=== PATIENT | female | born 1985 | race African-American/Black ===

== ENCOUNTER 2020-04-06 07:14 | Outpatient (CLI) | payer OTHER ==
[~2020-04-06] VITALS: Ht 170.3 cm; Wt 76.9 kg
[2020-04-06] VITALS (7 sets, daily range): BP systolic 128–146; BP diastolic 86–102; PULSE 64–82; TEMP 98.5
[2020-04-06 08:10] LABS: HEMATOCRIT 37.2 % (37.0-47.0); HEMOGLOBIN 11.9 g/dl (12.5-16.0); MEAN CELL VOLUME 86 fl (80.0-100.0); MEAN CORPUSCULAR HEMOGLOBIN 27 pg (27.0-31.0); MEAN CORPUSCULAR HGB CONC 32 g/dl (33.0-37.0); MEAN PLATELET VOLUME 12.9 fl (7.4-10.4); PLATELET COUNT 132 K/mm3 (130-400); RED BLOOD COUNT 4.35 M/mm3 (4.10-5.30); REDCELL DISTRIBUTION WIDTH-CV 13.1 % (11.5-14.5)
[2020-04-06 08:13] LABS: CALCIUM 8.8 mg/dL (8.4-10.2); CREATININE, serum 0.59 (0.52-1.25); POTASSIUM 3.5 mmol/L (3.4-5.0)
[2020-04-06 08:20] LABS: INR 1.3 (0.8-3.0); PROTHROMBIN TIME 14.6 SECONDS (9.7-12.8)
[2020-04-06] MEDS ORDERED: TYLENOL 500MG500 MG PO (08:51)
--- NOTE | 2020-04-06 12:45 | NUR ---
Discharge instructions given to pt.pt verbalizes understanding.INT removed,catheter tip intact.Pt waiting on 's arrival.
--- NOTE | 2020-04-06 13:00 | NUR ---
pt escorted out via wheelchair by this nurse.
== END 2020-04-06 15:18 | disposition home or self-care (01) ==
LOC: COL.RAD 07:14
PROVIDERS: Internal Medicine Cardiovascular Disease
DX: R01.1 Cardiac murmur, unspecified (principal); R93.1 Abnormal findings on diagnostic imaging of heart and coronary circulation
CPT/HCPCS: J2704